=== PATIENT | female | born 1955 | race Caucasian/White ===

== ENCOUNTER 2017-03-22 21:10 | Emergency (ER) | payer OTHER ==
[~2017-03-22] VITALS: Ht 160 cm; Wt 99.8 kg
[~2017-03-22 21:10] MED LIST: ACCUPRIL20 MG PO; AMITRIPTYLINE50 MG PO; ASPIR LOW81 MG PO; CELEBREX200 MG PO; MIRALAX17 GM PO; MOTRIN800 MG PO; NASONEX0.05 MG/AC NS; SYNTHROID,LEVO75 MCG PO; SYNTHROID0.1 MG PO; TESSALON PERLE200 MG PO; ZIAC 5 MG-6.25 MG PO; ZIAC 5 MG-6.251 TAB PO; ZINC1 GRA; ZITHROMAX Z PA250 MG PO
[2017-03-22] MEDS ORDERED: MEDROL DOSEPAK4 MG PO (21:53)
== END 2017-03-22 22:01 | disposition home or self-care (01) ==
LOC: ED 21:10
DX: L24.9 Irritant contact dermatitis, unspecified cause (principal); Z88.6 Allergy status to analgesic agent; Z88.8 Allergy status to other drugs, medicaments and biological substances; Z88.1 Allergy status to other antibiotic agents

== ENCOUNTER → 2019-10-24 | Outpatient (CLI) | payer OTHER ==
[~2019-10-24] MED LIST changes: +MEDROL DOSEPAK4 MG PO
[2019-10-24 12:00] LABS: ALBUMIN 3.7 gm/dl (3.1-4.5); CREATININE 1.22 mg/dL (0.55-1.02); POTASSIUM 4.4 mmol/L (3.5-5.1); TOTAL PROTEIN 7.1 gm/dL (6.4-8.2)
== END | disposition home or self-care (01) ==
LOC: LAB 11:02
PROVIDERS: Family Medicine
DX: E78.00 Pure hypercholesterolemia, unspecified (principal); E55.9 Vitamin D deficiency, unspecified; E11.9 Type 2 diabetes mellitus without complications

== ENCOUNTER 2023-10-01 07:01 | Emergency (ER) | payer OTHER ==
[~2023-10-01] VITALS: Ht 160 cm; Wt 90.7 kg
== END 2023-10-01 09:43 | disposition home or self-care (01) ==
LOC: ED 07:01
DX: S76.011A Strain of muscle, fascia and tendon of right hip, initial encounter (principal); I10 Essential (primary) hypertension; E11.9 Type 2 diabetes mellitus without complications; E78.00 Pure hypercholesterolemia, unspecified; M19.90 Unspecified osteoarthritis, unspecified site; Z88.8 Allergy status to other drugs, medicaments and biological substances; Z88.2 Allergy status to sulfonamides; Z90.710 Acquired absence of both cervix and uterus; X50.1XXA Overexertion from prolonged static or awkward postures, initial encounter; Y93.89 Activity, other specified; Y92.89 Other specified places as the place of occurrence of the external cause; Y99.8 Other external cause status

== ENCOUNTER 2023-12-08 20:17 | Emergency (ER) | payer OTHER ==
[~2023-12-08] VITALS: Ht 157.4 cm; Wt 92.1 kg
[2023-12-08] MEDS ORDERED: Ondansetron Hydrochloride 4 MG/2 ML VIAL IV ONE (20:40)
[2023-12-08] MEDS ORDERED: Meclizine Hydrochloride 25 MG TAB PO ONE (20:40)
[2023-12-08 21:00] LABS: BASO # 0.1 10*3/uL (0.0-0.1); BASO % 0.9 % (0.0-1.0); EOS % 0.4 % (1.0-4.0); HEMATOCRIT 38.2 % (37.0-47.0); LYMPH # 1.1 10*3/uL (1.3-4.4); LYMPH % 13.9 % (27.0-41.0); MEAN CORPUSCULAR HGB 27.7 pg (27.0-31.0); MEAN CORPUSCULAR HGB CONC 33.8 g/dl (33.0-37.0); MEAN PLATELET VOLUME 11.7 fl (9.6-12.3); MONO # 0.3 10*3/uL (0.1-1.0); MONO % 3.2 % (3.0-9.0); NEUT # 6.4 10*3/uL (2.3-7.9); NEUT % 80.2 % (47.0-73.0); PLATELET COUNT AUTOMATED 216 10*3/uL (130-400); RED BLOOD COUNT 4.66 10*6/uL (4.10-5.10); RED CELL DISTRI WIDTH 13.1 % (0-14.5); WHITE BLOOD COUNT 7.9 10*3/uL (4.8-10.8)
[2023-12-08 21:15] LABS: BUN 12 mg/dl (9-23); CHLORIDE 98 mmol/L (98-107); LIPASE 38 U/L (12-53); POTASSIUM 3.6 mmol/L (3.4-5.1)
[2023-12-08] MEDS ORDERED: SODIUM CHLORIDE 0.9% 1,000 ML IV ONE (21:55)
[2023-12-08] MEDS ORDERED: LATANOPROST 0.005% 2.5 ML BOTTLE OPH ONE (23:35)
[2023-12-08] MEDS ORDERED: TIMOLOL 0.5% OPHTHALMIC 5 ML BOTTLE OPH ONE (23:35)
[2023-12-09] MEDS ORDERED: Ondansetron Hydrochloride 4 MG/2 ML VIAL IV ONE (00:25)
[2023-12-09] MEDS ORDERED: acetaZOLAMIDE 250 MG TAB PO ONE ×2 (02:10→02:15)
== END 2023-12-09 03:32 | disposition home or self-care (01) ==
LOC: ED 20:17
PROVIDERS: Internal Medicine
DX: R42 Dizziness and giddiness (principal); R11.2 Nausea with vomiting, unspecified; I10 Essential (primary) hypertension; E78.00 Pure hypercholesterolemia, unspecified; M19.90 Unspecified osteoarthritis, unspecified site; E11.40 Type 2 diabetes mellitus with diabetic neuropathy, unspecified; Z88.8 Allergy status to other drugs, medicaments and biological substances; Z88.2 Allergy status to sulfonamides; Z88.6 Allergy status to analgesic agent; Z90.710 Acquired absence of both cervix and uterus; Z98.890 Other specified postprocedural states

== ENCOUNTER → 2024-04-27 | Outpatient (CLI) | payer OTHER ==
[2024-04-27 15:48] LABS: HEMATOCRIT 39.1 % (37.0-47.0); MEAN CELL VOLUME 86.3 fl (81.0-99.0); MEAN CORPUSCULAR HGB 28.9 pg (27.0-31.0); MEAN CORPUSCULAR HGB CONC 33.5 g/dl (33.0-37.0); MEAN PLATELET VOLUME 11.8 fl (9.6-12.3); RED BLOOD COUNT 4.53 10*6/uL (4.10-5.10); RED CELL DISTRI WIDTH 13.5 % (0-14.5); WHITE BLOOD COUNT 13.5 10*3/uL (4.8-10.8)
[2024-04-27 16:10] LABS: ALKALINE PHOSPHATASE 99 U/L (46-116); BUN 12 mg/dl (9-23); CHLORIDE 98 mmol/L (98-107); POTASSIUM 4.1 mmol/L (3.4-5.1); SGPT/ALT 22 U/L (5-49); TOTAL PROTEIN 7.2 gm/dL (6.0-8.0)
== END | disposition home or self-care (01) ==
LOC: LAB 15:26
PROVIDERS: ATTEND Family Medicine
DX: N39.0 Urinary tract infection, site not specified (principal); D64.9 Anemia, unspecified